=== PATIENT | female | born 1950 | race Caucasian/White ===

== ENCOUNTER 2016-07-12 09:32 | Inpatient (IN) | payer MEDICARE ==
[2016-07-12] MEDS ORDERED: IPRATROPIUM/ALBUTEROL 0.5-2.5 MG/3 ML AMPUL NEB ONE ×2 (11:03→13:01)
[2016-07-12] MEDS ORDERED: LIDOCAINE 1% INJ-PF (10 MG/ML) 30 ML SDV INJ ONE (11:04)
[2016-07-12] MEDS ORDERED: PREDNISONE 20 MG TABLET PO ONE (11:04)
--- NOTE | 2016-07-12 11:05 | ER Document Report ---
ED Medical Screen (RME) - General Chief Complaint: Breathing Difficulty Stated Complaint: DIFFICULTY BREATHING Notes: This 65-year-old female with O2 dependent COPD, chronic back pain management, reports just over 1 week history of nonproductive cough with increasing difficulty breathing. She saw her doctor recently. I have greeted and performed a rapid initial assessment of this patient. A comprehensive ED assessment and evaluation of the patient, analysis of test results and completion of the medical decision making process will be conducted by additional ED providers. TRAVEL OUTSIDE OF THE [place] IN LAST 30 DAYS: No - Related Data Allergies/Adverse Reactions: clarithromycin [From Biaxin] Allergy (Verified 07/12/16 09:36) magnesium sulfate [Magnesium Sulfate] Allergy (Verified 07/12/16 09:36) morphine [Morphine] Allergy (Verified 07/12/16 09:36) Sulfa (Sulfonamide Antibiotics) Allergy (Verified 07/12/16 09:36) Past Medical History - Past Medical History Cardiac Medical History: Reports: Hx Hypertension Pulmonary Medical History: Reports: Hx COPD - 2L home oxygen Endocrine Medical History: Reports: Hx Diabetes Mellitus Type 1 Renal/ Medical History: Denies: Hx Peritoneal Dialysis Malignancy Medical History: Reports: Hx Breast Cancer Past Surgical History: Reports: Hx Appendectomy, Hx Cholecystectomy, Hx Hysterectomy - total, Hx Mastectomy - bilateral Physical Exam - Vital signs Vitals: Temp Pulse Resp BP Pulse Ox 98.4 F 102 H 20 140/65 H 98 07/12/16 09:38 07/12/16 09:38 07/12/16 09:38 07/12/16 09:38 07/12/16 09:38 Course - Vital Signs Vital signs: Temp Pulse Resp BP Pulse Ox 98.4 F 102 H 20 140/65 H 98 07/12/16 09:38 07/12/16 09:38 07/12/16 09:38 07/12/16 09:38 07/12/16 09:38
[2016-07-12 11:52] LABS: HEMATOCRIT 37.7 % (36.0-47.0); HEMOGLOBIN 13.1 g/dL (12.0-15.5); HGB HCT DIFFERENCE 1.6; MEAN CORPUSCULAR HEMOGLOBIN 28.3 pg (27.0-33.4); MEAN CORPUSCULAR HGB CONC 34.8 g/dL (32.0-36.0); MEAN CORPUSCULAR VOLUME 81 fl (80-97); RED BLOOD COUNT 4.64 10^6/uL (3.72-5.28); RED CELL DISTRIBUTION WIDTH 13.1 % (11.5-14.0); WHITE BLOOD COUNT 25.4 10^3/uL (4.0-10.5)
[2016-07-12 12:18] LABS: ALANINE AMINOTRANSFERASE 41 U/L (9-52); ALBUMIN 4.7 g/dL (3.5-5.0); ALKALINE PHOSPHATASE 61 U/L (38-126); ASPARTATE AMINO TRANSFERASE 42 U/L (14-36); BILIRUBIN,DIRECT 0.4 mg/dL (0.0-0.4); BILIRUBIN,TOTAL 0.6 mg/dL (0.2-1.3); BLOOD UREA NITROGEN 17 mg/dL (7-20); CALCIUM 9.4 mg/dL (8.4-10.2); CARBON DIOXIDE 26 mmol/L (22-30); CHLORIDE 81 mmol/L (98-107); CREATINE KINASE 929 U/L (30-135); CREATININE RESULT 0.56 mg/dL (0.52-1.25); GLUCOSE 244 mg/dL (75-110); POTASSIUM 5.1 mmol/L (3.6-5.0); TOTAL PROTEIN 6.8 g/dL (6.3-8.2)
[2016-07-12 12:20] LABS: ANION GAP 12 (5-19); BASOPHILS % (MANUAL) 0 % (0-2); EOSINOPHILS % (MANUAL) 0 % (0-6); LYMPHOCYTES % (MANUAL) 15 % (13-45); TOTAL CELLS COUNTED 100
[2016-07-12 12:23] LABS: TOXIC GRANULATION SLIGHT
[2016-07-12 12:26] LABS: SODIUM 118.7 mmol/L (137-145)
[2016-07-12 12:29] LABS: CREATINE KINASE MB 35.6 ng/mL (<4.55); TROPONIN I 0.032 ng/mL
[2016-07-12] MEDS ORDERED: NORMAL SALINE 1000 ML 1,000 ML IV ONE ×2 (12:39→14:30)
[2016-07-12] MEDS ORDERED: LEVOFLOXACIN 750 MG TABLET PO ONE (12:43)
[2016-07-12] MEDS ORDERED: CEFTRIAXONE 1 GM/D5W RTU 50 ML IV ONE (12:43)
--- NOTE | 2016-07-12 12:48 | ER Document Report ---
ED General - General Chief Complaint: Breathing Difficulty Stated Complaint: DIFFICULTY BREATHING Time seen by provider: 12:30 Mode of Arrival: Ambulatory Information source: Patient Notes: 65-year-old female with 1 month history of shortness of breath dyspnea on exertion and nonproductive cough worse than her baseline. She reports over the past 2 days cough is become productive of yellow sputum and she's had fevers 201 at home. Ports some posttussive vomiting but no other nausea or vomiting. She reports diffuse pain to chest back abdomen arms and legs but no specific or localizing pain anywhere. She denies melena, hematochezia, or diarrhea, dysuria. She reports no swelling to extremities. She reports chronically using oxygen 2.5 L nasal cannula. Patient reports she's been using breathing treatments at home without improvement. Physical Exam: General: Alert, moderately respiratory distress but is able to speak in complete sentences. HEENT: Normocephalic. Atraumatic. PERRLA. Extraocular movements intact. Oropharynx clear. Neck: Supple. Non-tender. No JVD Respiratory: Diminished aeration throughout all lung chowdhury with prolonged expiratory phase and faint wheezes bilaterally Cardiovascular: Tachycardic regular PMI not displaced Abdominal: Normal Inspection. Soft, non-tender. No distension. Normal Bowel Sounds. Back: Non-tender. No deformity or step off. Extremities: Moves all four extremities. Upper extremities: Normal inspection. Non-tender. Normal color. Normal ROM. Normal temperature. Lower extremities: Normal inspection. Non-tender. No edema. Normal color. Normal ROM. Normal temperature. Neurological: Speech clear mentation normal moves all 4 extremities to command and relates that difficulty Psychological: Normal affect. Normal Mood. Skin: Warm. Dry. Normal color. TRAVEL OUTSIDE OF THE [place] IN LAST 30 DAYS: No - Related Data Allergies/Adverse Reactions: clarithromycin [From Biaxin] Allergy (Verified 07/12/16 09:36) magnesium sulfate [Magnesium Sulfate] Allergy (Verified 07/12/16 09:36) morphine [Morphine] Allergy (Verified 07/12/16 09:36) Sulfa (Sulfonamide Antibiotics) Allergy (Verified 07/12/16 09:36) Past Medical History - Social History Smoking Status: Current Every Day Smoker Family History: COPD Patient has suicidal ideation: No Patient has homicidal ideation: No - Past Medical History Cardiac Medical History: Reports: Hx Hypertension Pulmonary Medical History: Reports: Hx COPD - 2L home oxygen Endocrine Medical History: Reports: Hx Diabetes Mellitus Type 1 Renal/ Medical History: Denies: Hx Peritoneal Dialysis Malignancy Medical History: Reports: Hx Breast Cancer Past Surgical History: Reports: Hx Appendectomy, Hx Cholecystectomy, Hx Hysterectomy - total, Hx Mastectomy - bilateral Review of Systems - Review of Systems Constitutional: See HPI EENT: denies: Ear pain, Throat pain Cardiovascular: denies: Palpitations, Syncope Respiratory: Cough, Short of breath Gastrointestinal: denies: Abdominal pain, Black stools, Rectal bleeding Genitourinary: denies: Burning, Dysuria Female Genitourinary: Post menopausal Musculoskeletal: denies: Back pain, Muscle pain Skin: denies: Rash Hematologic/Lymphatic: denies: Swollen glands Neurological/Psychological: denies: Weakness, Numbness Physical Exam - Vital signs Vitals: Temp Pulse Resp BP Pulse Ox 98.4 F 102 H 20 140/65 H 98 07/12/16 09:38 07/12/16 09:38 07/12/16 09:38 07/12/16 09:38 07/12/16 09:38 Course - Re-evaluation Re-evalutation: 07/12/16 12:57 Patient is speaking in complete sentences but quite tachypnea while doing so. Patient is already use her own nebulizer treatment that she brought with her. Given the degree of her respiratory difficulty and her hyponatremia she is going require admission and Dr. Jay of the hospitalist service as accepted the patient. Patient's CK CK-MB are mildly elevated and troponin is upper limits of normal but she is not describing any symptoms concerning for acute coronary syndrome and I believe that any weakly positive cardiac enzymes would be due to COPD exacerbation 07/12/16 13:02 - Vital Signs Vital signs: Temp Pulse Resp BP Pulse Ox 98.4 F 102 H 20 140/65 H 98 07/12/16 09:38 07/12/16 09:38 07/12/16 09:38 07/12/16 09:38 07/12/16 09:38 - Laboratory Result Diagrams: 07/12/16 11:40 07/12/16 11:40 Laboratory results interpreted by me: 07/12/16 07/12/16 07/12/16 11:40 11:40 11:40 WBC 25.4 H Monocytes % (Manual) 17 H Abs Neuts (Manual) 16.5 H Abs Monocytes (Manual) 4.3 H Sodium 118.7 L* Potassium 5.1 H Chloride 81 L Glucose 244 H AST 42 H Creatine Kinase 929 H CK-MB (CK-2) 35.60 H - Diagnostic Test Radiology reviewed: Image reviewed, Reports reviewed - EKG Interpretation by Me Additional EKG results interpreted by me: 07/12/16 12:47 EKG reviewed by myself shows sinus rhythm at 87 with no acute changes Discharge - Discharge Clinical Impression: Chronic obstructive pulmonary disease with acute exacerbation, Hyponatremia Condition: Fair Disposition: ADMITTED INPATIENT Admitting Provider: Hospitalist Unit Admitted: Telemetry
[2016-07-12] MEDS ORDERED: METHYLPREDNISOLONE INJ 125 MG/2 ML SDV IV ONE (13:01)
[2016-07-12] MEDS ORDERED: LORAZEPAM 0.5 MG TABLET PO ONE (14:30)
[2016-07-12] MEDS ORDERED: ACETAMINOPHEN 325 MG TABLET PO PRN (15:11)
[2016-07-12] MEDS ORDERED: (PENDING PHARMACY ID) (Lorazepam [Lorazepam] 2 MG) PO PRN (15:14)
[2016-07-12] MEDS ORDERED: OXYCODONE HCL 10 MG PO PRN (15:14)
[2016-07-12] MEDS ORDERED: DEXTROSE 40% GEL 15 GM TUBE PO PRN ×2 (15:17)
[2016-07-12] MEDS ORDERED: HYDRALAZINE HCL INJ/PF 20 MG/1 ML SDV IV PRN (15:17)
[2016-07-12] MEDS ORDERED: DEXTROSE 50%-WATER 25 GM/50 ML DISP.SYRIN IV PRN ×2 (15:17)
[2016-07-12] MEDS ORDERED: GLUCAGON,HUMAN RECOMB 1 MG INJ IM PRN (15:17)
[2016-07-12] MEDS ORDERED: NORMAL SALINE 1000 ML 1,000 ML IV PRN (15:29)
--- NOTE | 2016-07-12 15:58 | PDOC H&P ---
History of Present Illness Admission Date/PCP: 07/12/16 13:45 ALEX REYES JR, MD Patient complains of: Shortness of breath History of Present Illness: ANTONIO GIBBONS is a 65 year old female with past medical history of oxygen dependent COPD presents with one-month history of worsening shortness of breath , cough. She has been treated by her primary care provider with outpatient antibiotics as well as steroid injections. She continues to have worsening symptoms despite treatment. She takes chronic benzodiazepine and opiates and is now starting to get very anxious in the emergency department since she has not had her home medications. Past Medical History Cardiac Medical History: Reports: Hypertension Pulmonary Medical History: Reports: Chronic Obstructive Pulmonary Disease (COPD ) - 2L home oxygen Endocrine Medical History: Reports: Diabetes Mellitus Type 1 Malignancy Medical History: Reports: Breast Cancer Past Surgical History Past Surgical History: Reports: Appendectomy, Cholecystectomy, Hysterectomy - total, Mastectomy - bilateral Social History Information Source: Patient Smoking Status: Current Every Day Smoker Frequency of Alcohol Use: None Hx Recreational Drug Use: No - Advance Directive Resuscitation Status: Full Code Family History Family History: COPD Parental Family History Reviewed: Yes Children Family History Reviewed: Yes Sibling(s) Family History Reviewed.: Yes Medication/Allergy Home Medications: Clopidogrel Bisulfate [Plavix 75 mg Tablet] 75 mg PO DAILY 07/12/16 Cyclobenzaprine HCl [Flexeril 5 mg Tablet] 5 mg PO TIDP PRN 07/12/16 Ipratropium/Albuterol Sulfate [Iprat-Albut 0.5-3(2.5) mg/3 ml] 3 ml NEB Q4 07/12 Lisinopril [Prinivil 2.5 mg Tablet] 2.5 mg PO DAILY 07/12/16 Lorazepam 2 mg PO Q8HP PRN 07/12/16 Oxycodone HCl [Oxycontin] 30 mg PO Q12 07/12/16 Oxycodone HCl [Roxicodone] 30 mg PO Q6HP PRN 07/12/16 Pantoprazole Sodium [Protonix] 40 mg PO DAILY 07/12/16 Polyethylene Glycol 3350 [Miralax Powder 17 gm/Packet] 17 g PO DAILY 07/12/16 Pravastatin Sodium [Pravachol] 40 mg PO QHS 07/12/16 Promethazine HCl 12.5 mg PO Q6HP PRN 07/12/16 Allergies/Adverse Reactions: clarithromycin [From Biaxin] Allergy (Verified 07/12/16 09:36) magnesium sulfate [Magnesium Sulfate] Allergy (Verified 07/12/16 09:36) morphine [Morphine] Allergy (Verified 07/12/16 09:36) Sulfa (Sulfonamide Antibiotics) Allergy (Verified 07/12/16 09:36) Review of Systems Constitutional: ABSENT: chills, fever(s), headache(s), weight gain, weight loss Eyes: ABSENT: visual disturbances Ears: ABSENT: hearing changes Cardiovascular: ABSENT: chest pain, dyspnea on exertion, edema, orthropnea, palpitations Respiratory: PRESENT: cough, dyspnea, sputum. ABSENT: hemoptysis Gastrointestinal: ABSENT: abdominal pain, constipation, diarrhea, hematemesis, hematochezia, nausea, vomiting Genitourinary: ABSENT: dysuria, hematuria Musculoskeletal: ABSENT: joint swelling Integumentary: ABSENT: rash, wounds Neurological: ABSENT: abnormal gait, abnormal speech, confusion, dizziness, focal weakness, syncope Psychiatric: PRESENT: anxiety. ABSENT: depression, homidical ideation, suicidal ideation Endocrine: ABSENT: cold intolerance, heat intolerance, polydipsia, polyuria Hematologic/Lymphatic: ABSENT: easy bleeding, easy bruising Physical Exam Vital Signs: Temp Pulse Resp BP Pulse Ox 98.4 F 102 H 24 H 140/65 H 98 07/12/16 09:38 07/12/16 09:38 07/12/16 12:50 07/12/16 09:38 07/12/16 09:38 PHYSICAL EXAM: GENERAL: Appears well, no acute distress HEENT: Normocephalic, no scleral icterus, conjunctiva clear, EOEM intact, PERRLA , moist mucous membranes NECK: trachea midline, no thyromegally RESPIRATORY: Bilateral wheezes and rhonchi CARDIAC: Regular rate and rhythm, no murmur/elayne/rub ABDOMEN: Soft, no distension, no tenderness, no guarding, normal bowel sounds, negative Falcon sign RECTAL: deferred : deferred EXTREMITIES: No edema, cyanosis, clubbing MUSCULOSKELETAL: No joint swelling or deformity VASCULAR: normal peripheral pulses NEUROLOGIC: Alert, oriented to person/place/time, normal speech, cranial nerves grossly intact, 5/5 strength in all extremities, tactile sensation intact in all extremities SKIN: No rash, no wounds, no worrisome skin lesions PSYCHIATRIC: Anxious mood, normal affect Results Impressions: Chest X-Ray 07/12/16 11:02 IMPRESSION: COPD. No acute pulmonary process. Interval fracture of the proximal right humerus without obvious healing. Age indeterminate. Assessment & Plan - Diagnosis (1) Sepsis Qualifiers: Sepsis type: sepsis due to unspecified organism Qualified Code(s): A41.9 - Sepsis, unspecified organism Is this a current diagnosis for this admission?: YesPlan: Secondary to pneumonia. (2) Pneumonia Qualifiers: Pneumonia type: due to unspecified organism Laterality: right Lung location: lower lobe of lung Qualified Code(s): J18.9 - Pneumonia, unspecified organism Is this a current diagnosis for this admission?: YesPlan: Likely bacterial. Start IV cefepime and IV Levaquin pending blood cultures and sputum culture. (3) Acute exacerbation of chronic obstructive pulmonary disease (COPD) Is this a current diagnosis for this admission?: YesPlan: Start IV Solu-Medrol. Scheduled duo nebs. When necessary albuterol. Patient will need to discontinue smoking. (4) Acute on chronic respiratory failure with hypoxemia Is this a current diagnosis for this admission?: YesPlan: Continue oxygen supplementation. (5) Diabetes Is this a current diagnosis for this admission?: YesPlan: Resume home dose of Levemir 10 units subcutaneous nightly. Sliding scale insulin. (6) Hypertension Is this a current diagnosis for this admission?: YesPlan: Resume home dose of lisinopril. When necessary IV hydralazine. (7) Anxiety disorder Is this a current diagnosis for this admission?: YesPlan: Continue outpatient dose of when necessary Ativan. (8) Chronic pain Is this a current diagnosis for this admission?: YesPlan: Chronic opiate dependent. Continue outpatient dose of OxyContin. Decrease oxycodone to 10 mg every 6 hours when necessary secondary to concerns about respiratory depression. (9) Hyponatremia Is this a current diagnosis for this admission?: YesPlan: Check TSH. Check CT scan of chest to rule out lung mass given smoking history. Check urine serum osmolality. (10) Tobacco abuse Is this a current diagnosis for this admission?: Yes - Time Time Spent: Greater than 70 Minutes - Inpatient Certification Medical Necessity: Need Close Monitoring Due to Risk of Patient Decompensation, Need For Continuous Telemetry Monitoring, Need for IV Antibiotics
[2016-07-12 16:49] LABS: FREE T3 2.95 pg/mL (2.77-5.27)
[2016-07-12] MEDS ORDERED: ENOXAPARIN SODIUM INJ 40 MG/0.4 ML DISP.SYRIN SUBCUT ONE (17:00)
[2016-07-12 17:03] LABS: THYROID STIMULATING HORMONE 0.58 uIU/mL (0.47-4.68)
--- NOTE | 2016-07-12 17:33 | EKG REPORT ---
SEVERITY:- ABNORMAL ECG - SINUS RHYTHM LEFT ATRIAL ABNORMALITY BORDERLINE T ABNORMALITIES, ANT-LAT LEADS : Confirmed by: Tom Yancey MD 12-Jul-2016 17:33:25
[2016-07-12] MEDS: ALBUTEROL SULFATE 0.083% NEB 2.5 MG/3 ML AMPUL NEB PRN (17:58)
[2016-07-12] MEDS: LORAZEPAM 1 MG TABLET PO PRN (18:29)
[2016-07-12] MEDS: CEFEPIME HCL 2 GM in DEXTROSE 5%-WATER 100 ML IV SCH (18:42)
[2016-07-12] MEDS: METHYLPREDNISOLONE INJ 40 MG/1 ML SDV IV SCH (19:39)
[2016-07-12] MEDS: FAMOTIDINE INJ/PF 20 MG/2 ML SDV IV SCH (19:39)
[2016-07-12] MEDS: ATORVASTATIN CALCIUM 10 MG TABLET PO SCH (19:40)
[2016-07-12] MEDS: OXYCODONE HCL SR 10 MG TABLET PO SCH (19:40)
[2016-07-12] MEDS: GUAIFENESIN 600 MG TABLET.SA PO SCH (19:41)
[2016-07-12] MEDS: IPRATROPIUM/ALBUTEROL 0.5-2.5 MG/3 ML AMPUL NEB SCH (19:56)
[2016-07-12] MEDS ORDERED: (PENDING PHARMACY ID) (Pravastatin Sodium [Pravachol] 40 MG) PO SCH (22:00)
[2016-07-12] MEDS ORDERED: INSULIN DETEMIR 100 UNIT/ML 3 ML PEN SUBCUT SCH (22:00)
[2016-07-12] MEDS ORDERED: (PENDING PHARMACY ID) (Oxycodone Hcl [Oxycontin] 30 MG) PO SCH (22:00)
[2016-07-12] MEDS ORDERED: CEFEPIME 2 GM/D5W RTU 50 ML IV SCH (22:00)
[2016-07-12] MEDS: INSULIN LISPRO 100 UNIT/ML 3 ML VIAL SUBCUT PRN (22:59)
[2016-07-13] MEDS: CEFEPIME HCL 2 GM in DEXTROSE 5%-WATER 100 ML IV SCH ×2 (05:27→18:08)
[2016-07-13] MEDS: METHYLPREDNISOLONE INJ 40 MG/1 ML SDV IV SCH ×3 (05:28→21:19)
[2016-07-13] MEDS: OXYCODONE HCL IR 5 MG TABLET PO PRN ×2 (05:29→12:30)
[2016-07-13] MEDS: LORAZEPAM 1 MG TABLET PO PRN ×3 (05:29→21:52)
[2016-07-13 06:58] LABS: ABSOLUTE LYMPHOCYTES (AUTO) 1.5 10^3/uL (0.5-4.7); ABSOLUTE MONOCYTES (AUTO) 1.1 10^3/uL (0.1-1.4); ABSOLUTE NEUT (AUTO) 12.9 10^3/uL (1.7-8.2); HEMATOCRIT 35.2 % (36.0-47.0); HEMOGLOBIN 11.8 g/dL (12.0-15.5); HGB HCT DIFFERENCE 0.2; LYMPHOCYTES % (AUTO) 9.5 % (13-45); MEAN CORPUSCULAR HEMOGLOBIN 27.2 pg (27.0-33.4); MEAN CORPUSCULAR HGB CONC 33.6 g/dL (32.0-36.0); MEAN CORPUSCULAR VOLUME 81 fl (80-97); RED BLOOD COUNT 4.34 10^6/uL (3.72-5.28); RED CELL DISTRIBUTION WIDTH 13.1 % (11.5-14.0); SEGMENTED NEUTROPHILS % (AUTO) 83.5 % (42-78); WHITE BLOOD COUNT 15.4 10^3/uL (4.0-10.5)
[2016-07-13 07:02] LABS: ANION GAP 8 (5-19); BLOOD UREA NITROGEN 17 mg/dL (7-20); CALCIUM 8.9 mg/dL (8.4-10.2); CARBON DIOXIDE 25 mmol/L (22-30); CHLORIDE 93 mmol/L (98-107); GLUCOSE 268 mg/dL (75-110); SODIUM 125.6 mmol/L (137-145)
[2016-07-13] MEDS: IPRATROPIUM/ALBUTEROL 0.5-2.5 MG/3 ML AMPUL NEB SCH ×3 (07:55→19:57)
[2016-07-13] MEDS: POLYETHYLENE GLYCOL 3350 POWDER 17 GM/1 PACKET PO SCH (09:24)
[2016-07-13] MEDS: GUAIFENESIN 600 MG TABLET.SA PO SCH ×2 (09:24→21:19)
[2016-07-13] MEDS: LEVOFLOXACIN 750 MG/D5W RTU 150 ML IV SCH (09:24)
[2016-07-13] MEDS: FAMOTIDINE INJ/PF 20 MG/2 ML SDV IV SCH ×2 (09:25→21:19)
[2016-07-13] MEDS: LISINOPRIL 5 MG TABLET PO SCH (09:25)
[2016-07-13] MEDS: OXYCODONE HCL SR 10 MG TABLET PO SCH ×2 (09:25→21:20)
[2016-07-13] MEDS: CLOPIDOGREL BISULFATE 75 MG TABLET PO SCH (09:25)
[2016-07-13] MEDS: ENOXAPARIN SODIUM INJ 40 MG/0.4 ML DISP.SYRIN SUBCUT SCH (09:26)
[2016-07-13] MEDS ORDERED: (PENDING PHARMACY ID) (Lisinopril [Prinivil 2.5 Mg Tablet] 2.5 MG) PO SCH (10:00)
[2016-07-13] MEDS ORDERED: LORAZEPAM INJ 2 MG/1 ML VIAL ONE (12:01)
[2016-07-13] MEDS: ALBUTEROL SULFATE 0.083% NEB 2.5 MG/3 ML AMPUL NEB PRN ×2 (12:08→18:46)
[2016-07-13] MEDS: INSULIN LISPRO 100 UNIT/ML 3 ML VIAL SUBCUT PRN ×3 (12:32→21:20)
[2016-07-13 12:42] LABS: ARTERIAL BLOOD BASE EXCESS 0.9 mmol/L; ARTERIAL BLOOD O2 SATURATION 99.2 % (94-98)
[2016-07-13] MEDS ORDERED: NORMAL SALINE 1000 ML 1,000 ML IV PRN (15:25)
--- NOTE | 2016-07-13 15:27 | PDOC PROGRESS REPORT ---
Subjective Progress Note for:: 07/13/16 Subjective:: Patient is exceptionally short of breath today. She is extremely anxious. Patient denies fever, chills, headache, new focal weakness, chest pain, abdominal pain, nausea, vomiting, diarrhea, constipation. Physical Exam Vital Signs: Temp Pulse Resp BP Pulse Ox 98.4 F 86 36 H 149/74 H 99 07/13/16 10:57 07/13/16 15:00 07/13/16 12:08 07/13/16 10:57 07/13/16 12:08 Intake & Output 07/12/16 07/13/16 07/14/16 06:59 06:59 06:59 Intake Total 680 Balance 680 Weight 55 kg GENERAL: Mild respiratory distress, extremely anxious HEENT: Conjunctiva clear, nonicteric, moist mucous membranes, no JVD, midline trachea RESPIRATORY: Tachypnea, inspiratory/expiratory wheezes, diminished air excursion CARDIAC: Regular rate and rhythm, no murmurs/gallops/rubs ABDOMEN: Soft, nondistended, nontender, positive bowel sounds, no rebound, no guarding EXTREMETIES: No edema, cyanosis, clubbing NEUROLOGIC: Alert, oriented to person/place/time, CN's grossly intact, no focal deficits SKIN: No rash, wounds PSYCH: Anxious Results Laboratory Results: 07/13/16 06:15 07/13/16 06:15 07/13/16 07/13/16 07/13/16 06:15 06:15 12:20 WBC 15.4 H RBC 4.34 Hgb 11.8 L Hct 35.2 L MCV 81 MCH 27.2 MCHC 33.6 RDW 13.1 Plt Count 359 Seg Neutrophils % 83.5 H Lymphocytes % 9.5 L Monocytes % 7.0 Eosinophils % 0.0 Basophils % 0.0 Absolute Neutrophils 12.9 H Absolute Lymphocytes 1.5 Absolute Monocytes 1.1 Absolute Eosinophils 0.0 Absolute Basophils 0.0 Carbonic Acid 1.54 H HCO3/H2CO3 Ratio 17:1 ABG pH 7.35 ABG pCO2 51.3 H ABG pO2 181.5 H ABG HCO3 27.4 H ABG O2 Saturation 99.2 H ABG Base Excess 0.9 FiO2 6 L Sodium 125.6 L Potassium 5.0 Chloride 93 L Carbon Dioxide 25 Anion Gap 8 BUN 17 Creatinine 0.50 L Est GFR ( Amer) > 60 Est GFR (Non-Af Amer) > 60 Glucose 268 H Calcium 8.9 Impressions: Chest X-Ray 07/12/16 11:02 IMPRESSION: COPD. No acute pulmonary process. Interval fracture of the proximal right humerus without obvious healing. Age indeterminate. Chest/Abdomen CTA 07/13/16 08:00 IMPRESSION: No CT angio evidence of acute pulmonary emboli. Centrilobular emphysema fish Left ventricular hypertrophy Assessment & Plan - Diagnosis (1) Acute on chronic respiratory failure with hypoxemia Is this a current diagnosis for this admission?: YesPlan: Patient will be started on BiPAP for respiratory support. She is on chronic home oxygen at baseline. CTA of chest negative for pulmonary embolism, negative for pulmonary infiltrate, consistent with severe emphysema. (2) Sepsis Qualifiers: Sepsis type: sepsis due to unspecified organism Qualified Code(s): A41.9 - Sepsis, unspecified organism Is this a current diagnosis for this admission?: YesPlan: Now afebrile with improving white blood count on empiric antibiotics. Blood cultures no growth 24 hours. (3) Pneumonia Qualifiers: Pneumonia type: due to unspecified organism Laterality: right Lung location: lower lobe of lung Qualified Code(s): J18.9 - Pneumonia, unspecified organism Is this a current diagnosis for this admission?: YesPlan: Clinical diagnosis, no radiographic findings of pulmonary infiltrate. Continue IV cefepime and Levaquin for now. (4) Acute exacerbation of chronic obstructive pulmonary disease (COPD) Is this a current diagnosis for this admission?: YesPlan: Increase Solu-Medrol to 80 mg IV every 8 hours. Continue bronchodilators. (5) Diabetes Is this a current diagnosis for this admission?: YesPlan: Continue Levemir 15 units nightly. Sliding scale insulin. (6) Hypertension Is this a current diagnosis for this admission?: Yes (7) Anxiety disorder Is this a current diagnosis for this admission?: Yes (8) Chronic pain Is this a current diagnosis for this admission?: Yes (9) Hyponatremia Is this a current diagnosis for this admission?: YesPlan: Improving. TSH normal. CT scan of the chest negative for mass. Urine and serum osmolality low possibly suggestive of polydipsia. I will continue normal saline for now while patient is on BiPAP. When she is more stable and off BiPAP and taking sufficient oral intake I will probably place her on fluid restriction. (10) Tobacco abuse Is this a current diagnosis for this admission?: Yes - Time Time Spent with patient: 35 or more minutes
[2016-07-13] MEDS: INSULIN DETEMIR 100 UNIT/ML 3 ML PEN SUBCUT SCH (21:19)
[2016-07-13] MEDS: ATORVASTATIN CALCIUM 10 MG TABLET PO SCH (21:19)
[2016-07-14] MEDS: ALBUTEROL SULFATE 0.083% NEB 2.5 MG/3 ML AMPUL NEB PRN ×4 (01:02→18:38)
[2016-07-14] MEDS: CEFEPIME HCL 2 GM in DEXTROSE 5%-WATER 100 ML IV SCH (06:29)
[2016-07-14] MEDS: LORAZEPAM 1 MG TABLET PO PRN ×3 (06:29→21:42)
[2016-07-14] MEDS: METHYLPREDNISOLONE INJ 40 MG/1 ML SDV IV SCH (06:29)
[2016-07-14] MEDS: OXYCODONE HCL IR 5 MG TABLET PO PRN ×2 (06:29→13:06)
[2016-07-14 07:18] LABS: HEMOGLOBIN 12.6 g/dL (12.0-15.5); HGB HCT DIFFERENCE 0.8; MEAN CORPUSCULAR HEMOGLOBIN 27.5 pg (27.0-33.4); MEAN CORPUSCULAR HGB CONC 33.9 g/dL (32.0-36.0); MEAN CORPUSCULAR VOLUME 81 fl (80-97); RED BLOOD COUNT 4.56 10^6/uL (3.72-5.28); RED CELL DISTRIBUTION WIDTH 13.2 % (11.5-14.0); WHITE BLOOD COUNT 21.8 10^3/uL (4.0-10.5)
[2016-07-14 07:38] LABS: ANION GAP 8 (5-19); BLOOD UREA NITROGEN 21 mg/dL (7-20); CALCIUM 9.6 mg/dL (8.4-10.2); CARBON DIOXIDE 27 mmol/L (22-30); CHLORIDE 92 mmol/L (98-107); CREATININE RESULT 0.53 mg/dL (0.52-1.25); GLUCOSE 200 mg/dL (75-110); SODIUM 127.3 mmol/L (137-145)
[2016-07-14 07:39] LABS: BASOPHILS % (MANUAL) 0 % (0-2); EOSINOPHILS % (MANUAL) 0 % (0-6); LYMPHOCYTES % (MANUAL) 4 % (13-45); POTASSIUM 4.9 mmol/L (3.6-5.0); TOTAL CELLS COUNTED 100
[2016-07-14 07:41] LABS: RBC MORPHOLOGY COMMENT NORMO-CYTIC/CHROMIC
[2016-07-14] MEDS: ENOXAPARIN SODIUM INJ 40 MG/0.4 ML DISP.SYRIN SUBCUT SCH (08:35)
[2016-07-14] MEDS: INSULIN LISPRO 100 UNIT/ML 3 ML VIAL SUBCUT PRN ×5 (08:35→21:54)
[2016-07-14] MEDS: IPRATROPIUM/ALBUTEROL 0.5-2.5 MG/3 ML AMPUL NEB SCH ×4 (09:06→20:43)
[2016-07-14] MEDS: POLYETHYLENE GLYCOL 3350 POWDER 17 GM/1 PACKET PO SCH (10:24)
[2016-07-14] MEDS: LEVOFLOXACIN 750 MG/D5W RTU 150 ML IV SCH (10:25)
[2016-07-14] MEDS: LISINOPRIL 5 MG TABLET PO SCH (10:25)
[2016-07-14] MEDS: FAMOTIDINE INJ/PF 20 MG/2 ML SDV IV SCH (10:26)
[2016-07-14] MEDS: OXYCODONE HCL SR 10 MG TABLET PO SCH ×2 (10:26→21:43)
[2016-07-14] MEDS: GUAIFENESIN 600 MG TABLET.SA PO SCH ×2 (10:26→21:43)
[2016-07-14] MEDS: CLOPIDOGREL BISULFATE 75 MG TABLET PO SCH (10:26)
--- NOTE | 2016-07-14 11:06 | Physician Advisory Note ---
Physician Advisor ProgressNote .: Pursuant to the plan for [facility], I have reviewed the medical record for this patient. Physician Advisor Statement: Possible documentation opportunities if attending agrees: 1. "RLL PNA, by clinical dx, suspect due to gram-neg organism given COPD & DM type 2" As always, if concerned about any unstable VS or abnormal labs, please comment on them & note what doing about them, & please document each day the potential clinical problems you are concerned could occur if pt not kept in hospital for tx at this time. Thanks for your help with documentation accuracy/specificity improvement! Wilma Bustillos MD [facility] Physician Advisor, Fellow of Hospital Medicine
[2016-07-14] MEDS ORDERED: PREDNISONE 20 MG TABLET PO ONE (11:45)
[2016-07-14] MEDS: INSULIN DETEMIR 100 UNIT/ML 3 ML PEN SUBCUT SCH (21:43)
[2016-07-14] MEDS: ATORVASTATIN CALCIUM 10 MG TABLET PO SCH (21:43)
--- NOTE | 2016-07-14 22:06 | PDOC PROGRESS REPORT ---
Subjective Progress Note for:: 07/14/16 Subjective:: Patient states her breathing is much better and request to go home. She is extremely anxious. Patient denies fever, chills, headache, new focal weakness, chest pain, abdominal pain, nausea, vomiting, diarrhea, constipation. Physical Exam Vital Signs: Temp Pulse Resp BP Pulse Ox 98.2 F 120 H 24 H 126/55 H 98 07/14/16 07:39 07/14/16 20:43 07/14/16 20:43 07/14/16 07:39 07/14/16 20:43 Intake & Output 07/13/16 07/14/16 07/15/16 06:59 06:59 06:59 Intake Total 3060 830 Balance 3060 830 Weight 55 kg 56 kg GENERAL: No acute distress HEENT: Conjunctiva clear, nonicteric, moist mucous membranes, no JVD, midline trachea RESPIRATORY: mild inspiratory/expiratory wheezes, good air excursion CARDIAC: Regular rate and rhythm, no murmurs/gallops/rubs ABDOMEN: Soft, nondistended, nontender, positive bowel sounds, no rebound, no guarding EXTREMETIES: No edema, cyanosis, clubbing NEUROLOGIC: Alert, oriented to person/place/time, CN's grossly intact, no focal deficits SKIN: No rash, wounds PSYCH: Anxious Results Laboratory Results: 07/14/16 06:17 07/14/16 06:17 07/14/16 07/14/16 06:17 06:17 WBC 21.8 H RBC 4.56 Hgb 12.6 Hct 37.0 MCV 81 MCH 27.5 MCHC 33.9 RDW 13.2 Plt Count 337 Seg Neutrophils % Not Reportable Lymphocytes % Not Reportable Monocytes % Not Reportable Eosinophils % Not Reportable Basophils % Not Reportable Absolute Neutrophils Not Reportable Absolute Lymphocytes Not Reportable Absolute Monocytes Not Reportable Absolute Eosinophils Not Reportable Absolute Basophils Not Reportable Sodium 127.3 L Potassium 4.9 Chloride 92 L Carbon Dioxide 27 Anion Gap 8 BUN 21 H Creatinine 0.53 Est GFR ( Amer) > 60 Est GFR (Non-Af Amer) > 60 Glucose 200 H Calcium 9.6 Impressions: Chest X-Ray 07/12/16 11:02 IMPRESSION: COPD. No acute pulmonary process. Interval fracture of the proximal right humerus without obvious healing. Age indeterminate. Chest/Abdomen CTA 07/13/16 08:00 IMPRESSION: No CT angio evidence of acute pulmonary emboli. Centrilobular emphysema fish Left ventricular hypertrophy Assessment & Plan - Diagnosis (1) Acute on chronic respiratory failure with hypoxemia Is this a current diagnosis for this admission?: YesPlan: No stable on [place] O2. She is on chronic home oxygen at baseline. CTA of chest negative for pulmonary embolism, negative for pulmonary infiltrate, consistent with severe emphysema. (2) Sepsis Qualifiers: Sepsis type: sepsis due to unspecified organism Qualified Code(s): A41.9 - Sepsis, unspecified organism Is this a current diagnosis for this admission?: YesPlan: Now afebrile with improving white blood count on empiric antibiotics. Blood cultures no growth. (3) Pneumonia Qualifiers: Pneumonia type: due to unspecified organism Laterality: right Lung location: lower lobe of lung Qualified Code(s): J18.9 - Pneumonia, unspecified organism Is this a current diagnosis for this admission?: YesPlan: Cultures negative. Stop Iv ABX. Start oral Levaquin. (4) Acute exacerbation of chronic obstructive pulmonary disease (COPD) Is this a current diagnosis for this admission?: YesPlan: Stop IV Solumedrol. Start prednisone. D/c in am if stable. (5) Diabetes Is this a current diagnosis for this admission?: YesPlan: Continue Levemir 15 units nightly. Sliding scale insulin. (6) Hypertension Is this a current diagnosis for this admission?: YesPlan: Continue lisinopril. When necessary IV hydralazine. (7) Anxiety disorder Is this a current diagnosis for this admission?: YesPlan: Continue outpatient dose of when necessary Ativan. (8) Chronic pain Is this a current diagnosis for this admission?: YesPlan: Chronic opiate dependent. Continue outpatient dose of OxyContin. Decreased oxycodone to 10 mg every 6 hours when necessary secondary to concerns about respiratory depression. (9) Hyponatremia Is this a current diagnosis for this admission?: YesPlan: Improving. TSH normal. CT scan of the chest negative for mass. Urine and serum osmolality low possibly suggestive of polydipsia. Start fluid restriction. (10) Tobacco abuse Is this a current diagnosis for this admission?: Yes - Time Time Spent with patient: 35 or more minutes Anticipated discharge: Home Within: within 24 hours
[2016-07-15 07:35] LABS: ANION GAP 5 (5-19); BLOOD UREA NITROGEN 21 mg/dL (7-20); CALCIUM 8.9 mg/dL (8.4-10.2); CARBON DIOXIDE 29 mmol/L (22-30); CHLORIDE 95 mmol/L (98-107); CREATININE RESULT 0.57 mg/dL (0.52-1.25); GLUCOSE 135 mg/dL (75-110); POTASSIUM 4.1 mmol/L (3.6-5.0); SODIUM 129.4 mmol/L (137-145)
[2016-07-15 07:36] LABS: ABSOLUTE LYMPHOCYTES (AUTO) 2.4 10^3/uL (0.5-4.7); ABSOLUTE MONOCYTES (AUTO) 1.8 10^3/uL (0.1-1.4); ABSOLUTE NEUT (AUTO) 14.1 10^3/uL (1.7-8.2); HEMATOCRIT 34.7 % (36.0-47.0); HEMOGLOBIN 11.8 g/dL (12.0-15.5); HGB HCT DIFFERENCE 0.7; LYMPHOCYTES % (AUTO) 13.3 % (13-45); MEAN CORPUSCULAR HEMOGLOBIN 27.9 pg (27.0-33.4); MEAN CORPUSCULAR HGB CONC 34.1 g/dL (32.0-36.0); MEAN CORPUSCULAR VOLUME 82 fl (80-97); MONOCYTES % (AUTO) 9.7 % (3-13); RED BLOOD COUNT 4.24 10^6/uL (3.72-5.28); RED CELL DISTRIBUTION WIDTH 13.6 % (11.5-14.0); WHITE BLOOD COUNT 18.3 10^3/uL (4.0-10.5)
[2016-07-15] MEDS: ENOXAPARIN SODIUM INJ 40 MG/0.4 ML DISP.SYRIN SUBCUT SCH (08:03)
[2016-07-15] MEDS: IPRATROPIUM/ALBUTEROL 0.5-2.5 MG/3 ML AMPUL NEB SCH (08:29)
[2016-07-15] MEDS: OXYCODONE HCL IR 5 MG TABLET PO PRN (08:31)
[2016-07-15] MEDS: POLYETHYLENE GLYCOL 3350 POWDER 17 GM/1 PACKET PO SCH (09:34)
[2016-07-15] MEDS: LISINOPRIL 5 MG TABLET PO SCH (09:35)
[2016-07-15] MEDS: GUAIFENESIN 600 MG TABLET.SA PO SCH (09:36)
[2016-07-15] MEDS: CLOPIDOGREL BISULFATE 75 MG TABLET PO SCH (09:36)
[2016-07-15] MEDS: OXYCODONE HCL SR 10 MG TABLET PO SCH (09:37)
[2016-07-15 09:59] VITALS: BP 158/76
[2016-07-15] MEDS ORDERED: PREDNISONE 20 MG TABLET PO SCH (10:00)
[2016-07-15] MEDS ORDERED: LEVOFLOXACIN 750 MG TABLET PO SCH (10:00)
--- NOTE | 2016-07-15 14:15 | PDOC DISCHARGE SUMMARY ---
General - Admit/Disc Date/PCP Admission Date/Primary Care Provider: 07/12/16 15:11 ALEX REYES JR, MD Discharge Date: 07/15/16 - Discharge Diagnosis (1) Sepsis Is this a current diagnosis for this admission?: YesSummary: [place] to be secondary to the pneumonia. Cultures have been negative. (2) Pneumonia Is this a current diagnosis for this admission?: YesSummary: Patient has had negative cultures. We'll complete a course of Levaquin. (3) Acute exacerbation of chronic obstructive pulmonary disease (COPD) Is this a current diagnosis for this admission?: YesSummary: Patient will be sent home on a prednisone taper. (4) Anxiety disorder Is this a current diagnosis for this admission?: Yes (5) Chronic pain Is this a current diagnosis for this admission?: Yes (6) Diabetes Is this a current diagnosis for this admission?: Yes (7) Hypertension Is this a current diagnosis for this admission?: Yes (8) Hyponatremia Is this a current diagnosis for this admission?: Yes - Additional Information Resuscitation Status: Full Code Discharge Diet: Diabetic Discharge Activity: Activity As Tolerated Home Medications: Clopidogrel Bisulfate [Plavix 75 mg Tablet] 75 mg PO DAILY 07/12/16 Cyclobenzaprine HCl [Flexeril 5 mg Tablet] 5 mg PO TIDP PRN 07/12/16 Ipratropium/Albuterol Sulfate [Iprat-Albut 0.5-3(2.5) mg/3 ml] 3 ml NEB Q4 07/12 Lisinopril [Prinivil 2.5 mg Tablet] 2.5 mg PO DAILY 07/12/16 Lorazepam 2 mg PO Q8HP PRN 07/12/16 Oxycodone HCl [Oxycontin] 30 mg PO Q12 07/12/16 Oxycodone HCl [Roxicodone] 30 mg PO Q6HP PRN 07/12/16 Pantoprazole Sodium [Protonix] 40 mg PO DAILY 07/12/16 Polyethylene Glycol 3350 [Miralax Powder 17 gm/Packet] 17 g PO DAILY 07/12/16 Pravastatin Sodium [Pravachol] 40 mg PO QHS 07/12/16 Promethazine HCl 12.5 mg PO Q6HP PRN 07/12/16 Insulin Detemir [Levemir Insulin 100 units/mL] 15 unit SUBCUT QHS #1 insuln.pen 07/15/16 Levofloxacin [Levaquin 750 mg Tablet] 750 mg PO DAILY #4 tablet 07/15/16 Prednisone [Deltasone 20 mg Tablet] 10 mg PO DAILY #21 tablet 07/15/16 History of Present Illness History of Present Illness: ANTONIO GIBBONS is a 65 year old female who presented with a one-month history of worsening shortness of breath and cough. Patient had been treated as an outpatient with oral antibiotics. The patient also was noted have wheezing consistent with an acute COPD exacerbation and was found to have a pneumonia on chest x-ray. Hospital Course Hospital Course: 65-year-old female with a history of COPD who presented with shortness of breath and had failed outpatient treatment of a pneumonia. Patient was noted have some relatively low blood pressures consistent with sepsis. The patient was started on cefepime and Levaquin empirically. All of the cultures have been negative up to date. The patient's COPD exacerbation was treated with IV steroids as well as nebulizers. The patient's respiratory status improved and on the day of discharge she was on oral prednisone as well as oral Levaquin and will be sent home with 4 additional days of Levaquin to complete her anabiotic therapy. The rest of her medical problems were stable during this hospitalization. Physical Exam Vital Signs: Temp Pulse Resp BP Pulse Ox 98.3 F 77 20 158/76 H 98 07/15/16 09:57 07/15/16 09:57 07/15/16 09:57 07/15/16 09:57 07/15/16 09:57 Intake & Output 07/14/16 07/15/16 07/16/16 06:59 06:59 06:59 Intake Total 3060 3090 Balance 3060 3090 Weight 56 kg 56.2 kg General appearance: PRESENT: no acute distress Eye exam: PRESENT: conjunctiva pink. ABSENT: scleral icterus Mouth exam: PRESENT: moist, tongue midline Neck exam: ABSENT: JVD Respiratory exam: PRESENT: wheezes - Few expiratory wheezes.. ABSENT: rales, rhonchi Cardiovascular exam: PRESENT: RRR. ABSENT: diastolic murmur, rubs, systolic murmur GI/Abdominal exam: PRESENT: normal bowel sounds, soft. ABSENT: distended, guarding, mass, organolmegaly, rebound, tenderness Extremities exam: ABSENT: calf tenderness, clubbing, pedal edema Neurological exam: PRESENT: alert, awake, oriented to person, oriented to place , oriented to time, oriented to situation, CN II-XII grossly intact. ABSENT: motor sensory deficit Psychiatric exam: PRESENT: appropriate affect Results Laboratory Results: 07/15/16 05:55 07/15/16 05:55 07/15/16 07/15/16 05:55 05:55 WBC 18.3 H RBC 4.24 Hgb 11.8 L Hct 34.7 L MCV 82 MCH 27.9 MCHC 34.1 RDW 13.6 Plt Count 308 Seg Neutrophils % 77.0 Lymphocytes % 13.3 Monocytes % 9.7 Eosinophils % 0.0 Basophils % 0.0 Absolute Neutrophils 14.1 H Absolute Lymphocytes 2.4 Absolute Monocytes 1.8 H Absolute Eosinophils 0.0 Absolute Basophils 0.0 Sodium 129.4 L Potassium 4.1 Chloride 95 L Carbon Dioxide 29 Anion Gap 5 BUN 21 H Creatinine 0.57 Est GFR ( Amer) > 60 Est GFR (Non-Af Amer) > 60 Glucose 135 H Calcium 8.9 Impressions: Chest X-Ray 07/12/16 11:02 IMPRESSION: COPD. No acute pulmonary process. Interval fracture of the proximal right humerus without obvious healing. Age indeterminate. Chest/Abdomen CTA 07/13/16 08:00 IMPRESSION: No CT angio evidence of acute pulmonary emboli. Centrilobular emphysema fish Left ventricular hypertrophy Qualifiers P[place]INT BEING DISCHARGED WITH ANY OF THE FOLLOWING DIAGNOSIS?: No Plan Discharge Plan: Patient is discharged home. Will follow up with primary care in 1-2 weeks. Time Spent: Greater than 30 Minutes
== END 2016-07-15 10:15 | disposition home or self-care (01) | DRG 871 ==
LOC: ER 09:32 → EH 13:45 → UNDOADMIN 13:45 → EH 15:11 → 5 16:44
PROVIDERS: ADMIT Family Medicine; ATTEND Family Medicine
PROC: 5A09357 Assistance with Respiratory Ventilation, Less than 24 Consecutive Hours, Continuous Positive Airway Pressure (ICD-10-PCS; principal; 2016-07-13)
DX: A41.9 Sepsis, unspecified organism (principal); J18.9 Pneumonia, unspecified organism; J96.21 Acute and chronic respiratory failure with hypoxia; J44.0 Chronic obstructive pulmonary disease with (acute) lower respiratory infection; J44.1 Chronic obstructive pulmonary disease with (acute) exacerbation; E87.1 Hypo-osmolality and hyponatremia; G89.29 Other chronic pain; I10 Essential (primary) hypertension; F17.200 Nicotine dependence, unspecified, uncomplicated; F41.9 Anxiety disorder, unspecified; M54.9 Dorsalgia, unspecified; E11.9 Type 2 diabetes mellitus without complications; Z85.3 Personal history of malignant neoplasm of breast; Z99.81 Dependence on supplemental oxygen; Z88.2 Allergy status to sulfonamides; Z88.6 Allergy status to analgesic agent; Z79.4 Long term (current) use of insulin; Z79.899 Other long term (current) drug therapy; Z90.49 Acquired absence of other specified parts of digestive tract; Z90.710 Acquired absence of both cervix and uterus; Z90.13 Acquired absence of bilateral breasts and nipples
CPT/HCPCS: 36415; 36600; 71020; 71275; 80048; 80053; 82550; 82553; 82803; 82962; 83880; 83930; 83935; 84439; 84443; 84481; 84484; 85025; 87040; 93005; 93010; 94640; 94660; 94667; 99285; J0692; J0696; J1650; J1815; J1956; J2060; J2920; J2930; J3490; J7030; J7512; J7620; S0028

== ENCOUNTER 2016-08-14 10:07 | Emergency (ER) | payer MEDICARE, MEDICAID ==
[2016-08-14] MEDS ORDERED: NORMAL SALINE 1000 ML 1,000 ML IV ONE (10:20)
[2016-08-14 10:40] LABS: AMORPHOUS SEDIMENT,URINE TRACE /HPF; APPEARANCE,URINE CLOUDY; BILIRUBIN,URINE NEGATIVE (NEGATIVE); GLUCOSE, URINE NEGATIVE (NEGATIVE); KETONES,URINE NEGATIVE (NEGATIVE); LEUKOCYTE ESTERASE,URINE NEGATIVE (NEGATIVE); NITRITE,URINE NEGATIVE (NEGATIVE); PROTEIN,URINE 30 mg/dL (NEGATIVE); URINE SPECIFIC GRAVITY 1.013; UROBILINOGEN,URINE NEGATIVE mg/dL (<2.0)
[2016-08-14 10:53] LABS: ABSOLUTE LYMPHOCYTES (AUTO) 2.4 10^3/uL (0.5-4.7); ABSOLUTE NEUT (AUTO) 9.3 10^3/uL (1.7-8.2); BASOPHILS % (AUTO) 0.3 % (0-2); EOSINOPHILS % (AUTO) 0.3 % (0-6); HEMATOCRIT 38.2 % (36.0-47.0); HEMOGLOBIN 13.4 g/dL (12.0-15.5); LYMPHOCYTES % (AUTO) 19.1 % (13-45); MEAN CORPUSCULAR HEMOGLOBIN 27.9 pg (27.0-33.4); MEAN CORPUSCULAR HGB CONC 35.1 g/dL (32.0-36.0); MEAN CORPUSCULAR VOLUME 80 fl (80-97); MONOCYTES % (AUTO) 7.6 % (3-13); RED BLOOD COUNT 4.81 10^6/uL (3.72-5.28); SEGMENTED NEUTROPHILS % (AUTO) 72.7 % (42-78); WHITE BLOOD COUNT 12.8 10^3/uL (4.0-10.5)
[2016-08-14 10:57] LABS: URINE BARBITURATES SCREEN NEGATIVE; URINE METHADONE SCREEN NEGATIVE; URINE OPIATES LOW UNCONFIRMED POSITIVE; URINE PHENCYCLIDINE SCREEN NEGATIVE
--- NOTE | 2016-08-14 11:18 | ER Document Report ---
ED General - General Chief Complaint: Accidental Overdose Stated Complaint: TOOK TO MUCH MEDICATION Time Seen by Provider: 08/14/16 10:38 Mode of Arrival: Ambulatory Information source: Patient Notes: This is a 66 year old female with O2 dependent COPD, HTN, and insulin dependent DM who presents after accidentally taking her normal morning medications twice today. She states that she awoke and took her regular medications at 0800: Plavix 75mg, Lisinopril 2.5mg, Oxycontin 30mg, Oxycodone IR 30mg, and Pravastatin 40mg. She then fell back asleep, and about 15 minutes later she awoke and forgot that she had already taken her meds, and took them again. She feels fine, just worried. No chest pain, headache, dizziness, nausea, vomiting. No current complaints. TRAVEL OUTSIDE OF THE [place] IN LAST 30 DAYS: No - Related Data Allergies/Adverse Reactions: clarithromycin [From Biaxin] Allergy (Verified 07/12/16 09:36) magnesium sulfate [Magnesium Sulfate] Allergy (Verified 07/12/16 09:36) morphine [Morphine] Allergy (Verified 07/12/16 09:36) Sulfa (Sulfonamide Antibiotics) Allergy (Verified 07/12/16 09:36) Past Medical History - General Information source: Patient - Social History Smoking Status: Current Every Day Smoker Frequency of alcohol use: None Drug Abuse: None Lives with: Family Family History: COPD Patient has suicidal ideation: No Patient has homicidal ideation: No - Past Medical History Cardiac Medical History: Reports: Hx Hypertension Pulmonary Medical History: Reports: Hx COPD - 2L home oxygen, Hx Pneumonia Endocrine Medical History: Reports: Hx Diabetes Mellitus Type 1 Renal/ Medical History: Denies: Hx Peritoneal Dialysis Malignancy Medical History: Reports: Hx Breast Cancer Past Surgical History: Reports: Hx Appendectomy, Hx Cholecystectomy, Hx Hysterectomy - total, Hx Mastectomy - bilateral Review of Systems - Review of Systems Notes: REVIEW OF SYSTEMS: CONSTITUTIONAL : Denies fever, chills, or sweats. Denies recent illness. EENT: Denies eye, ear, throat, or mouth pain or symptoms. Denies nasal or sinus congestion. CARDIOVASCULAR: Denies chest pain. RESPIRATORY: Denies cough, cold, or chest congestion. Denies shortness of breath, difficulty breathing, or wheezing. GASTROINTESTINAL: Denies abdominal pain. Denies nausea, vomiting, or diarrhea. GENITOURINARY: Denies difficulty urinating, painful urination, burning, frequency, or blood in urine. MUSCULOSKELETAL: Denies neck or back pain or joint pain or swelling. SKIN: Denies rash or skin lesions. HEMATOLOGIC : Denies easy bruising or bleeding. LYMPHATIC: Denies swollen, enlarged glands. NEUROLOGICAL: Denies altered mental status or loss of consciousness. Denies headache. PSYCHIATRIC: Denies anxiety or stress or depression. ALL OTHER SYSTEMS REVIEWED AND NEGATIVE. Physical Exam - Vital signs Vitals: Temp Pulse Resp BP Pulse Ox 98.6 F 124 H 21 H 186/81 H 96 08/14/16 10:08/14/16 10:08/14/16 10:08/14/16 10:08/14/16 10:09 - Notes Notes: PHYSICAL EXAMINATION: GENERAL: Well-appearing, well-nourished and in no acute distress, although anxious affect. Pleasant and conversant. HEAD: Atraumatic, normocephalic. EYES: Pupils equal round and reactive to light, extraocular movements intact, sclera anicteric, conjunctiva are normal. ENT: nares patent, oropharynx clear without exudates. Moist mucous membranes. NECK: Normal range of motion, supple without lymphadenopathy LUNGS: Breath sounds clear to auscultation bilaterally and equal. No wheezes rales or rhonchi. HEART: Regular rate and rhythm without murmurs ABDOMEN: Soft, nontender, normoactive bowel sounds. No guarding, no rebound. No masses appreciated. EXTREMITIES: Normal range of motion, no pitting or edema. NEUROLOGICAL: Cranial nerves grossly intact. Normal speech. No gross focal motor or sensory deficits appreciated PSYCH: Normal mood, anxious affect SKIN: Warm, Dry, normal turgor, no rashes or lesions noted. Course - Re-evaluation Re-evalutation: 08/14/16 12:35 Patient observed in the ER and she remains asymptomatic. She is hemodynamically stable. I did review the list of medications which she has taken a double dose today at 0800/0815: Plavix 75mg Lisinopril 2.5mg Oxycontin 30mg Oxycodone 30mg Pravastatin 40mg at this time she is stable for discharge. She and family ensure that they will be more cautious with medications. Strict return precautions discussed. - Vital Signs Vital signs: Temp Pulse Resp BP Pulse Ox 98.6 F 124 H 30 H 114/85 94 08/14/16 10:09 08/14/16 10:09 08/14/16 12:17 08/14/16 12:17 08/14/16 12:17 - Laboratory Result Diagrams: 08/14/16 10:44 08/14/16 10:44 Laboratory results interpreted by me: 08/14/16 08/14/16 08/14/16 10:23 10:44 10:44 WBC 12.8 H Absolute Neutrophils 9.3 H Potassium 3.4 L Glucose 111 H Calcium 10.3 H Direct Bilirubin 0.5 H Urine Protein 30 H Acetaminophen < 10 L Discharge - Discharge Clinical Impression: Overdose of medication Qualifiers: Encounter type: initial encounter Injury intent: accidental or unintentional Qualified Code(s): T50.901A - Poisoning by unspecified drugs, medicaments and biological substances, accidental (unintentional), initial encounter Condition: Stable Disposition: HOME, SELF-CARE Additional Instructions: Your blood work and exam show no emergent abnormality today. In the future, be cautious and take your medications only as prescribed. Follow up with your primary physician this week. Return to the ER for any worsening symptoms or concerns.
[2016-08-14 11:30] LABS: ALANINE AMINOTRANSFERASE 31 U/L (9-52); ALBUMIN 4.6 g/dL (3.5-5.0); ALKALINE PHOSPHATASE 74 U/L (38-126); ANION GAP 15 (5-19); ASPARTATE AMINO TRANSFERASE 26 U/L (14-36); BILIRUBIN,DIRECT 0.5 mg/dL (0.0-0.4); BILIRUBIN,TOTAL 0.6 mg/dL (0.2-1.3); BLOOD UREA NITROGEN 10 mg/dL (7-20); CALCIUM 10.3 mg/dL (8.4-10.2); CARBON DIOXIDE 25 mmol/L (22-30); CHLORIDE 100 mmol/L (98-107); CREATININE RESULT 0.64 mg/dL (0.52-1.25); GLUCOSE 111 mg/dL (75-110); LIPASE 78.8 U/L (23-300); POTASSIUM 3.4 mmol/L (3.6-5.0); SODIUM 140.2 mmol/L (137-145); TOTAL PROTEIN 7.8 g/dL (6.3-8.2)
[2016-08-14 11:31] LABS: ALCOHOL < 10 mg/dL (NONE DETECTED)
[2016-08-14 13:14] VITALS: BP 114/85
== END 2016-08-14 13:10 | disposition home or self-care (01) ==
LOC: ER 10:07
DX: T45.521A Poisoning by antithrombotic drugs, accidental (unintentional), initial encounter (principal); T46.4X1A Poisoning by angiotensin-converting-enzyme inhibitors, accidental (unintentional), initial encounter; T40.2X1A Poisoning by other opioids, accidental (unintentional), initial encounter; T46.6X1A Poisoning by antihyperlipidemic and antiarteriosclerotic drugs, accidental (unintentional), initial encounter; Z79.891 Long term (current) use of opiate analgesic; I10 Essential (primary) hypertension; E10.9 Type 1 diabetes mellitus without complications; F17.200 Nicotine dependence, unspecified, uncomplicated; J44.9 Chronic obstructive pulmonary disease, unspecified; Z99.81 Dependence on supplemental oxygen; Z79.899 Other long term (current) drug therapy; Z88.1 Allergy status to other antibiotic agents; Z88.8 Allergy status to other drugs, medicaments and biological substances; Z88.5 Allergy status to narcotic agent; Z88.2 Allergy status to sulfonamides; Z85.3 Personal history of malignant neoplasm of breast
CPT/HCPCS: 99284; 96360; 96361; 36415; 80307 ×4; 83690; 85025; 80053; 81001; J7030